=== PATIENT | male | born 1995 | race Caucasian/White ===

== ENCOUNTER 2022-04-07 00:16 | Emergency (ER) | payer OTHER ==
--- NOTE | 2022-04-07 00:45 | ED Physician Documentation ---
History of Present Illness - Stated complaint Stated Complaint: ABD PX, HEADACHE, DEHYDRATION - Chief complaint Chief Complaint: Abd Pain - History obtained from History obtained from: Patient - Additonal information Additional information: The patient comes to the emergency department with chief complaint of abdominal cramping for the last few days and nausea and vomiting occasionally since yesterday. The patient states he has not had any fevers or chills. No diarrhea. He states that he has been able to eat only very little bits at a time because of the cramping that happens when he does eat. The patient states that he vomited once yesterday and once today after drinking too much juice. The patient denies any sick contacts. He does not have any chronic abdominal problems. He denies any respiratory symptoms at this time. No other complaints. Review of Systems Constitutional: reports: Reviewed and negative Eyes: reports: Reviewed and negative Ears: reports: Reviewed and negative Nose: reports: Reviewed and negative Throat: reports: Reviewed and negative Cardiac: reports: Reviewed and negative Respiratory: reports: Reviewed and negative GI: reports: Abdominal Pain, Nausea, Vomiting : reports: Reviewed and negative Skin: reports: Reviewed and negative Musculoskeletal: reports: Reviewed and negative Neurologic: reports: Reviewed and negative Psychiatric: reports: Reviewed and negative Endocrine: reports: Reviewed and negative Immunocompromised: reports: Reviewed and negative PD PAST MEDICAL HISTORY - Present Medications Home Medications: Ambulatory Orders Medication Instructions Recorded Confirmed No Known Home Medications 04/07/22 04/07/22 - Allergies Allergies/Adverse Reactions: Allergies Allergy/AdvReac Type Severity Reaction Status Date / Time No Known Drug Allergies Allergy Verified 04/07/22 00:26 PD ED PE NORMAL - Vitals Vital signs reviewed: Yes - General General: Alert and oriented X 3, No acute distress, Well developed/nourished - HEENT HEENT: Atraumatic, PERRL, EOMI, Moist mucous membranes - Neck Neck: Supple, no meningeal sign - Cardiac Cardiac: RRR, No murmur - Respiratory Respiratory: No respiratory distress, Clear bilaterally - Abdomen Abdomen: Soft, Non distended, Other (Mild tenderness without rebound or guarding in both the epigastric region in the suprapubic region) - Derm Derm: Warm and dry - Extremities Extremities: No deformity - Neuro Neuro: Alert and oriented X 3 - Psych Psych: Normal mood, Normal affect Results - Vitals Vitals: Vital Signs - 24 hr 04/07/22 00:22 Temperature 37.1 C Heart Rate 88 Respiratory 16 Rate Blood Pressure 130/90 H O2 Saturation 97 Oxygen O2 Source Room air PD Medical Decision Making - ED course Complexity details: considered differential, d/w patient ED course: I discussed with the patient that overall, his symptoms are fairly benign as is his abdominal exam. I suspect a viral illness. We have discussed symptomatic management at home, as well as the usual indications for return. I have offered the patient a prescription for nausea medication but he has declined this at this time. Departure - Departure Disposition: Home, Self Care Clinical Impression: Vomiting Qualifiers: Vomiting type: bilious vomiting Nausea presence: with nausea Qualified Code(s): R11.14 - Bilious vomiting Condition: Stable Instructions: ED Nausea Vomiting Comments: Your symptoms are consistent with one of the many viruses that are going around right now and causing such symptoms. In general, viral illnesses are self- limited and will go away on their own, avoid to immune system fights off the virus. Until you are feeling better, please just stick to clear liquids, as we have discussed. Once your stomach is feeling well enough, you can try eating and slowly work back up to your normal diet. You have been offered a prescription for nausea medicine today but have declined. If you change your mind and wish to get a prescription, you may follow-up in [facility] for this. Forms: Activity restrictions
[2022-04-07 00:57] VITALS: BP 128/81
== END 2022-04-07 00:57 | disposition home or self-care (01) ==
LOC: ED 00:16
DX: R11.14 Bilious vomiting (principal)
CPT/HCPCS: 99281; 99283